=== PATIENT | male | born 1990 | race Caucasian/White ===

== ENCOUNTER 2017-01-08 15:32 | Emergency (ER) | payer MEDICAID ==
--- NOTE | 2017-01-08 15:51 | ED Physician Documentation ---
PD HPI CHEST PAIN - Stated complaint Stated Complaint: CHEST PX - Chief complaint Chief Complaint: Cardiac - History obtained from History obtained from: Patient - History of Present Illness Timing - onset: How many weeks ago (couple) Timing - onset during: Light activity Timing - duration: Weeks (having pain in chest area with lifting, use of arms, breathing, and palpation.) Timing - details: Gradual onset, Still present, Waxing and waning Quality: Aching, Dull, Pain Location: Substernal, Left chest, Right chest Radiation: No: Jaw, Neck, Back, Abdominal, Left upper extremity, Right upper extremity, Other Improved by: Rest Worsened by: Inspiration, Movement, Palpation Associated symptoms: Nausea, General Weakness, Other (fatigue). No: Shortness of air, Feeling faint / dizzy Similar symptoms before: Has not had sx before Recently seen: Not recently seen (has had thyroid disorder since teenager but had decided to stop thryoid med couple months ago, not wanting to be on med and see how he felt.) Review of Systems Constitutional: denies: Fever, Chills Cardiac: denies: Palpitations Respiratory: denies: Dyspnea, Cough, Wheezing GI: denies: Vomiting, Constipation, Diarrhea Skin: denies: Rash, Lesions Neurologic: reports: Generalized weakness Psychiatric: reports: Anxiety Endocrine: reports: Weight gain (mild in past couple months) PD PAST MEDICAL HISTORY - Past Medical History Cardiovascular: None Respiratory: None Neuro: None Endocrine/Autoimmune: HyPOthyroidism - Present Medications Home Medications: Ambulatory Orders Medication Instructions Recorded Confirmed Dexamethasone [Decadron] 4 mg PO DAILY #5 tablet 01/08/17 Naproxen 375 mg PO BID #20 tablet 01/08/17 - Allergies Allergies/Adverse Reactions: Allergies Allergy/AdvReac Type Severity Reaction Status Date / Time No Known Drug Allergies Allergy Verified 01/08/17 15:46 PD ED PE NORMAL - Vitals Vital signs reviewed: Yes - General General: Alert and oriented X 3 - HEENT HEENT: Pharynx benign - Neck Neck: Supple, no meningeal sign, No adenopathy, Other (mild swelling without tenderness of right thryoid area. ) - Cardiac Cardiac: RRR, No murmur - Respiratory Respiratory: Clear bilaterally, Other (chestwall tenderness in muscles and also parasternal cartilage. ) - Abdomen Abdomen: Soft, Non tender, No organomegaly - Derm Derm: Normal color, Warm and dry, No rash - Neuro Neuro: Alert and oriented X 3, No motor deficit, No sensory deficit, Normal speech - Psych Psych: Normal mood Results - Vitals Vitals: Vital Signs - 24 hr 01/08/17 01/08/17 15:44 18:59 Temperature 36.7 C 36.8 C Heart Rate 80 65 Respiratory 14 18 Rate Blood Pressure 143/97 H 129/88 H O2 Saturation 100 98 Oxygen O2 Source Room air - EKG (time done) 15:49 Rate: Rate (enter#) (71) Rhythm: NSR [place]: Normal Intervals: Normal [place] Ischemia: Normal ST segments. No: ST elevation c/w ischemia, ST depression - Labs Labs: Laboratory Tests 01/08/17 01/08/17 01/08/17 17:25 17:25 17:25 WBC 9.2 RBC 5.55 Hgb 17.0 Hct 48.8 MCV 87.9 MCH 30.6 MCHC 34.9 RDW 12.2 Plt Count 216 MPV 8.4 Neut # 5.1 Lymph # 3.1 Towns # 0.6 Eos # 0.2 Baso # 0.1 Absolute Nucleated RBC 0.01 Nucleated RBCs 0.1 ESR Sodium 139 Potassium 3.8 Chloride 104 Carbon Dioxide 27 Anion Gap 8.0 BUN 14 Creatinine 0.9 Estimated GFR (MDRD) 100 Glucose 92 Calcium 9.5 Total Bilirubin 0.5 AST 24 ALT 36 Alkaline Phosphatase 72 Total Creatine Kinase 171 C-Reactive Protein < 1.0 Total Protein 7.6 Albumin 4.7 Globulin 2.9 Albumin/Globulin Ratio 1.6 Lipase 26 TSH 7.27 H 01/08/17 17:25 WBC RBC Hgb Hct MCV MCH MCHC RDW Plt Count MPV Neut # Lymph # Towns # Eos # Baso # Absolute Nucleated RBC Nucleated RBCs ESR 1 Sodium Potassium Chloride Carbon Dioxide Anion Gap BUN Creatinine Estimated GFR (MDRD) Glucose Calcium Total Bilirubin AST ALT Alkaline Phosphatase Total Creatine Kinase C-Reactive Protein Total Protein Albumin Globulin Albumin/Globulin Ratio Lipase TSH - Rads (name of study) chest Radiology: Prelim report reviewed (normal) PD MEDICAL DECISION MAKING - ED course Complexity details: considered differential (seems muscular/chondral tenderness and pain. He has not been taking his thyroid med for 2 months, so can be having some effect of that. No signs of IN, which was his concern. No autoimmune disease with normal ESR. No myositis with normal WBC and CK. To resume his thyroid med. ), d/w patient Departure - Departure Disposition: 01 Home, Self Care Clinical Impression: Anterior chest wall pain Hypothyroidism Qualifiers: Hypothyroidism type: unspecified Qualified Code(s): E03.9 - Hypothyroidism, unspecified Condition: Stable Record reviewed to determine appropriate education?: Yes Instructions: ED Chest Pain Costochondritis Follow-Up: Margo Lutz ARNP [Primary Care Provider] - Prescriptions: Dexamethasone [Decadron] 4 mg PO DAILY #5 tablet Naproxen 375 mg PO BID #20 tablet Comments: Resume her thyroid medicine daily. I think your symptoms mainly relate to the effect of hypothyroid. Naproxen twice daily for the next 7-10 days to help with some of the muscle and chest pains. Decadron daily for 5 days to help as well. Add Tylenol if needed for pains. Your other blood tests as well as EKG and chest x-ray are normal appearing so I do not see any more serious or dangerous condition. Follow-up with your primary care in the next couple weeks. Discharge Date/Time: 01/08/17 18:59
[2017-01-08] MEDS ORDERED: IBUPROFEN 600 MG TABLET PO STA (17:12)
[2017-01-08] MEDS ORDERED: ACETAMINOPHEN 325 MG TABLET PO STA (17:13)
[2017-01-08] MEDS ORDERED: IBUPROFEN 600 MG TABLET PO ONE (17:30)
[2017-01-08] MEDS ORDERED: ACETAMINOPHEN 325 MG TABLET PO ONE (17:30)
[2017-01-08 17:36] LABS: BASOPHILS # (AUTO) 0.1 10^3/uL (0.0-0.1); EOSINOPHILS # (AUTO) 0.2 10^3/uL (0.0-0.7); EOSINOPHILS % (AUTO) 2.7 %; HCT - HEMATOCRIT 48.8 % (42.0-52.0); LYMPHOCYTES # (AUTO) 3.1 10^3/uL (1.5-3.5); LYMPHOCYTES % (AUTO) 34.2 %; MEAN CORPUSCULAR HEMOGLOBIN 30.6 pg (27.0-31.0); MEAN CORPUSCULAR HGB CONC 34.9 g/dL (32.0-36.0); MEAN CORPUSCULAR VOLUME 87.9 fL (80.0-94.0); MEAN PLATELET VOLUME 8.4 fL (7.4-11.4); MONOCYTES # (AUTO) 0.6 10^3/uL (0.0-1.0); MONOCYTES % (AUTO) 6.8 %; NEUTROPHILS # (AUTO) 5.1 10^3/uL (1.5-6.6); NEUTROPHILS % (AUTO) 55.3 %; NUCLEATED RED BLOOD CELLS AUTO 0.1 /100WBC; RED BLOOD COUNT 5.55 10^6/uL (4.70-6.10); RED CELL DISTRIBUTION WIDTH 12.2 % (12.0-15.0); UNCORRECTED WHITE BLOOD COUNT 9.2 x10^3/uL; WHITE BLOOD COUNT 9.2 x10^3/uL (4.8-10.8)
[2017-01-08 17:53] LABS: ALBUMIN/GLOBULIN RATIO 1.6 (1.0-2.2); BILIRUBIN,TOTAL 0.5 mg/dL (0.2-1.0); BUN - BLOOD UREA NITROGEN 14 mg/dL (6-20); CALCIUM 9.5 mg/dL (8.5-10.3); CARBON DIOXIDE - CO2 27 mmol/L (21-32); CHLORIDE 104 mmol/L (101-111); CREATININE 0.9 mg/dL (0.6-1.2); GFR - MDRD 100 (>89); GLUCOSE 92 mg/dL (70-100); LIPASE 26 U/L (22-51); POTASSIUM 3.8 mmol/L (3.5-5.0); SODIUM 139 mmol/L (135-145); TOTAL PROTEIN 7.6 g/dL (6.7-8.2)
--- NOTE | 2017-01-08 17:54 | XRAY Preliminary Report ---
Exam: XR Chest 2 View PA/LAT IMPRESSION: Normal 2-view chest radiography. [facility] SITE ID: [id number]
--- NOTE | 2017-01-08 17:56 | XRAY Report ---
EXAM: CHEST RADIOGRAPHY EXAM DATE: 01/08/2017 05:40 PM. CLINICAL HISTORY: Anterior chest pain. COMPARISON: None. TECHNIQUE: 2 views. FINDINGS: Lungs/Pleura: No focal opacities evident. No pleural effusion. No pneumothorax. Normal volumes. Mediastinum: Heart and mediastinal contours are unremarkable. Other: None. IMPRESSION: Normal 2-view chest radiography. [facility] Referring Provider Line: [phone] SITE ID: [id number]
[2017-01-08] MEDS ORDERED: traMADol 50 MG TABLET PO STA (18:44)
[2017-01-08] MEDS ORDERED: DEXAMETHASONE 10 MG/ML VIAL PO STA (18:44)
[2017-01-08] MEDS ORDERED: traMADol 50 MG TABLET PO ONE (18:56)
[2017-01-08] MEDS ORDERED: DEXAMETHASONE 10 MG/ML VIAL ONE (18:56)
[2017-01-08 19:00] VITALS: BP 129/88
== END 2017-01-08 18:59 | disposition home or self-care (01) ==
LOC: ED 15:32
DX: R07.89 Other chest pain (principal)
CPT/HCPCS: 36415; 71020; 80053; 82550; 83690; 84443; 85025; 85651; 86140; 93005; 99283; 99284; A9270

== ENCOUNTER 2017-03-23 00:43 | Outpatient (CLI) | payer SELFPAY | END 2017-03-23 00:44 | disposition EMS.NT | LOC: EMS 00:43 | PROVIDERS: ATTEND Surgery | DX: R10.32 Left lower quadrant pain (principal) ==